=== PATIENT | male | born 1940 | race Caucasian/White ===

== ENCOUNTER → 2016-12-31 | Outpatient (CLI) | payer OTHER | LOC: BMCIMAGING 11:09 | PROVIDERS: ATTEND Internal Medicine | DX: J44.9 Chronic obstructive pulmonary disease, unspecified (principal); J40 Bronchitis, not specified as acute or chronic ==

== ENCOUNTER → 2017-01-14 | Outpatient (CLI) | payer OTHER | LOC: BMCIMAGING 09:32 | PROVIDERS: ATTEND Internal Medicine | DX: J18.9 Pneumonia, unspecified organism (principal) ==

== ENCOUNTER → 2017-01-20 | Outpatient (CLI) | payer OTHER | LOC: FIMAGING 13:26 | PROVIDERS: ATTEND Internal Medicine | DX: J98.4 Other disorders of lung (principal); J47.9 Bronchiectasis, uncomplicated ==

== ENCOUNTER 2018-04-30 13:01 | Emergency (ER) | payer OTHER ==
[2018-04-30 13:39] LABS: PLATELET COUNT 177 10^3/uL (150-400)
--- NOTE | 2018-04-30 14:05 | EDPHY ---
H & P Stated Complaint: LLQ abd pain x 2 hrs Time Seen by Provider: 04/30/18 13:28 HPI/ROS: CHIEF COMPLAINT: Left lower quadrant pain HISTORY OF PRESENT ILLNESS: 77-year-old male with COPD presents with left lower quadrant pain. Onset of severe left lower quadrant pain this morning. The pain has been waxing and waning and is currently 6/10. Associated with difficulty urinating. No alleviating or aggravating factors. No prior history of similar pain, kidney stones or diverticulitis. REVIEW OF SYSTEMS: a complete 10 system ROS was performed and is negative except for the noted findings in the HPI - Personal History Current Tetanus/Diphtheria Vaccine: Yes Current Tetanus Diphtheria and Acellular Pertussis (TDAP): Yes - Medical/Surgical History Hx Asthma: No Hx Chronic Respiratory Disease: Yes Hx Diabetes: No Hx Cardiac Disease: Yes Hx Renal Disease: No Hx Cirrhosis: No Hx Alcoholism: No Hx HIV/AIDS: No Hx Splenectomy or Spleen Trauma: No Other PMH: lung cancer, removal of part of L lung, HTN, COPD, hiatal hernial s/ p fixing, afib - Social History Smoking Status: Former smoker Alcohol Use: Sober Drug Use: None Additional Social History: - Physical Exam Exam: General Appearance: Alert, pleasant Eyes: Pupils equal and round, no conjunctival pallor or injection ENT, Mouth: Mucous membranes moist Neck: Normal inspection Respiratory: Lungs are clear to auscultation Cardiovascular: Regular rate and rhythm Gastrointestinal: Abdomen is soft, left lower quadrant tenderness Neurological: A&O, nonfocal exam Skin: Warm and dry, no rash Extremities: Normal inspection Psychiatric: Mood and affect normal Constitutional: Initial Vital Signs Temperature (C) 36.4 C 04/30/18 13:03 Heart Rate 66 04/30/18 13:03 Respiratory Rate 16 04/30/18 13:03 Blood Pressure 121/58 H 04/30/18 13:03 O2 Sat (%) 90 L 04/30/18 13:03 O2 Delivery Mode Room Air Allergies/Adverse Reactions: No Known Allergies Allergy (Unverified 12/27/09 11:04) Home Medications: Medication Instructions Recorded Advair 100/50 (*) 04/30/18 Eliquis 04/30/18 FOLBEE TABLET 04/30/18 Hydrocodone/APAP 5/325 [[place] 1 - 2 tab PO Q4H PRN #10 tab 04/30/18 5/325] Incruse Ellipta 04/30/18 Metoprolol Succinate 04/30/18 Mucinex 04/30/18 SIMVASTATIN 04/30/18 Ventolin Hfa 04/30/18 ZYRTEC 04/30/18 buPROPion 04/30/18 Medical Decision Making - Diagnostics Imaging Results: CT abd/pelvis: distal left ureteral stone with mild hydro Imaging: Discussed imaging studies w/ callisthenics instructor Radiologist ED Course/Re-evaluation: This patient presents with waxing and waning left lower quadrant pain, consistent with renal colic. Abd exam benign. Declines pain meds. CT scan of the abdomen pelvis ordered. CT scan reveals a tiny left distal ureteral stone and mild hydronephrosis. Results discussed with the patient and his . The patient remains comfortable and declines pain medication. Follow-up instructions given. Differential Diagnosis: Differential diagnosis includes though it is not limited to appendicitis, cholecystitis, diverticulitis, pyelonephritis, bowel perforation, small bowel obstruction. - Data Points Laboratory Results: Laboratory Results 04/30/18 13:30 04/30/18 13:30 Point of Care Test Results: Chemistry 04/30/18 13:46 POC Sodium 142 mEq/L mEq/L (135-145) POC Potassium 3.4 mEq/L mEq/L (3.3-5.0) POC Chloride 105 mEq/L mEq/L (97-110) POC BUN 10 mg/dL mg/dL (7-23) POC Creatinine 0.9 mg/dL mg/dL (0.7-1.3) POC Glucose 130 mg/dL H mg/dL (70-100) ISTAT H&H 04/30/18 13:46 POC Hgb 12.2 gm/dL L gm/dL (13.7-17.5) POC Hct 36 % L % (40-51) Urine Dip Specific [place] (1.002-1.030) 1.015 PH (5.0-7.5) 6.5 Leukocytes (Negative) Trace Nitrites (Negative) Negative Protein (Negative) 2+ Glucose (Negative) Negative Ketones (Negative) Negative Urobilnogen (0.2-1.0 EU) 0.2 Blood (Negative) 3+ Departure - Departure Disposition: Home, Routine, Self-Care Clinical Impression: Renal colic on left side Condition: Good Instructions: Hydrocodone/Acetaminophen (By mouth), Kidney Stones (ED), Renal Colic (ED) Additional Instructions: The CT scan shows a small kidney stone adjacent to your bladder. Once the kidney stone passes into the bladder, there will be no further pain. Tylenol 650mg every 4 hours as needed while the pain persists. [place] contains Tylenol, so do not take Tylenol and [place] at the same time. Referrals: Pravin Vicente MD [Primary Care Provider] - As per Instructions Prescriptions: Hydrocodone/APAP 5/325 [[place] 5/325] 1 - 2 tab PO Q4H PRN #10 tab PRN Reason: Pain, Moderate
[2018-04-30 15:17] VITALS: BP 107/44
== END 2018-04-30 15:42 | disposition home or self-care (01) ==
DX: N13.2 Hydronephrosis with renal and ureteral calculous obstruction (principal); I10 Essential (primary) hypertension; J44.9 Chronic obstructive pulmonary disease, unspecified; Z90.2 Acquired absence of lung [part of]; Z85.118 Personal history of other malignant neoplasm of bronchus and lung
CPT/HCPCS: 82435-PO; 82565-PO; 82947-PO; 84132-PO; 84295-PO; 84520-PO; 85014-PO